=== PATIENT | female | born 1985 | race Caucasian/White ===

== ENCOUNTER 2017-11-14 08:06 | Emergency (ER) | payer OTHER ==
[2017-11-14] MEDS ORDERED: NS 1,000 ML IV ONE (08:19)
--- NOTE | 2017-11-14 08:40 | EDPHY ---
HPI/HX/ROS/PE/MDM Narrative: CHIEF COMPLAINT: Vaginal bleeding, 11 weeks HPI: The patient is an 11-week 32 y/o female arriving with her complaining of progressive vaginal bleeding over the last day. She had a prior miscarriage around 12-13 weeks gestation in June of this year and required two D&Cs. She has had brown-colored spotting throughout this and has been followed closely by her OBGYN in [place]. Last week they detected a heart beat by doppler. She and her are visiting and have been in the [facility] for the last two days. Yesterday her spotting changed from a brown color to dark red blood and the volume of bleeding has slowly increased through this morning to where she is now seeing a lot of blood in the toilet. She now has associated mild lower abdominal cramping. She contacted her OBGYN's office this morning and was advised to come into the ED. She denies fever, dysuria, vomiting, or other complaints. REVIEW OF SYSTEMS: Aside from elements discussed in the HPI, a comprehensive 10-point review of systems was reviewed and is negative. PMH: A1 (miscarriage in June), O+ SOCIAL HISTORY: at bedside. Visiting from [place]. 2 y/o daughter. PHYSICAL EXAM: General:Patient is alert, in no acute distress. ENT:Eyes are normal to inspection. ENT inspection normal. Neck: Normal inspection. Full range of motion. Respiratory:No respiratory distress. Breath sounds normal bilaterally. Cardiovascular: Regular rate and rhythm. Strong peripheral pulses. Normal cap refill. Abdomen:The abdomen is nontender to palpation. There are no peritoneal signs. Back: Normal to inspection. No tenderness to palpation. Pelvic: Declines exam Skin: Normal color. No rash. Warm and dry. Extremities: Normal appearance. Full range of motion. Neuro: Oriented x3. Normal motor function. Normal sensory function. ED Course: This is a healthy 32 y/o female who is 11 weeks and presents with a 24-hour history of progressive dark red vaginal bleeding now associated with mild lower abdominal cramping. Abdomen is benign on exam. Presentation suspicious for miscarriage. Plan for IV, labs, UA, obstetrics US. 1L IV NS ordered. US shows healthy 11-week fetus with small subchorionic hemorrhage. Labs unremarkable. 0940: Consulted with Dr. Jose, OBGYN. Reassessed patient and discussed findings. Recommended pelvic rest, avoidance of heavy exertion, and follow up with her OBGYN upon her return home. Strict return precautions discussed. She is comfortable with plan for discharge. MDM: Patient presents with vaginal bleeding in first trimester of . This is likely secondary to subchorionic hemorrhage, but patient advised this could be early miscarriage. No sign of preeclampsia, infection, appendicitis, IUFD. - Data Points Imaging Results: Imaging Impressions Obstetrics Ultrasound 11/14/17 08:43 Impression: 1. Small subchorionic hemorrhage near the internal os. 2. Low-lying placenta with the lower edge at the level of the internal os. Follow-up is recommended to assess for superior migration as the uterus enlarges. Results called and discussed with Angel Lloyd MD, at 11/14/2017 9:25 Imaging: Discussed imaging studies w/ assembler semiconductor Radiologist, I viewed and interpreted images myself Laboratory Results: Laboratory Results 11/14/17 08:40 11/14/17 08:40 11/14/17 11/14/17 11/14/17 08:40 08:40 08:40 WBC 6.63 10^3/uL 10^3/uL (3.80-9.50) RBC 5.02 10^6/uL 10^6/uL (4.18-5.33) Hgb 13.2 g/dL g/dL (12.6-16.3) Hct 39.4 % % (38.0-47.0) MCV 78.5 fL L fL (81.5-99.8) MCH 26.3 pg L pg (27.9-34.1) MCHC 33.5 g/dL g/dL (32.4-36.7) RDW 14.6 % % (11.5-15.2) Plt Count 247 10^3/uL 10^3/uL (150-400) MPV 10.4 fL fL (8.7-11.7) Neut % (Auto) 62.3 % % (39.3-74.2) Lymph % (Auto) 29.3 % % (15.0-45.0) [place] % (Auto) 5.9 % % (4.5-13.0) Eos % (Auto) 1.4 % % (0.6-7.6) Baso % (Auto) 0.8 % % (0.3-1.7) Nucleat RBC Rel Count 0.0 % % (0.0-0.2) Absolute Neuts (auto) 4.14 10^3/uL 10^3/uL (1.70-6.50) Absolute Lymphs (auto) 1.94 10^3/uL 10^3/uL (1.00-3.00) Absolute Monos (auto) 0.39 10^3/uL 10^3/uL (0.30-0.80) Absolute Eos (auto) 0.09 10^3/uL 10^3/uL (0.03-0.40) Absolute Basos (auto) 0.05 10^3/uL 10^3/uL (0.02-0.10) Absolute Nucleated RBC 0.00 10^3/uL 10^3/uL (0-0.01) Immature Gran % 0.3 % % (0.0-1.1) Immature Gran # 0.02 10^3/uL 10^3/uL (0.00-0.10) Sodium 138 mEq/L mEq/L (135-145) Potassium 3.9 mEq/L mEq/L (3.3-5.0) Chloride 107 mEq/L mEq/L (97-110) Carbon Dioxide 23 mEq/l mEq/l (22-31) Anion Gap 8 mEq/L mEq/L (8-16) BUN 7 mg/dL mg/dL (7-23) Creatinine 0.5 mg/dL L mg/dL (0.6-1.0) Estimated GFR > 60 Glucose 83 mg/dL mg/dL (70-100) Calcium 9.3 mg/dL mg/dL (8.5-10.4) Beta HCG, Quant 726938.00 mIU/mL H mIU/mL (0.00-4.83) Patient ABO/Rh O POSITIVE Medications Given: Discontinued Medications Sodium Chloride (Ns) 1,000 mls @ 0 mls/hr IV ONCE ONE; Wide Open PRN Reason: Protocol Stop: 11/14/17 08:20 Last Admin: 11/14/17 08:45 Dose: 1,000 mls General Time Seen by Provider: 11/14/17 08:34 Initial Vital Signs: Initial Vital Signs Temperature (C) 36.3 C 11/14/17 08:10 Heart Rate 92 11/14/17 08:10 Respiratory Rate 16 11/14/17 08:10 Blood Pressure 141/87 H 11/14/17 08:10 O2 Sat (%) 99 11/14/17 08:10 O2 Delivery Mode Room Air Allergies/Adverse Reactions: No Known Allergies Allergy (Unverified 11/14/17 08:09) Home Medications: Medication Instructions Recorded 11/14/17 Departure - Departure Disposition: Home, Routine, Self-Care Clinical Impression: Subchorionic hemorrhage in first trimester, Vaginal bleeding during Condition: Good Instructions: First Trimester Vaginal Bleed (ED), Subchorionic Hemorrhage (ED) Additional Instructions: Follow up with your OBGYN upon your return home. Pelvic rest, no intercourse until cleared by OBGYN. Avoid heavy exertion. Return to the nearest ED for severe bleeding, lightheadedness, fainting, severe abdominal pain, or other worsening of condition. Referrals: Brittni Jose MD [Medical Doctor] - As per Instructions Report Scribed for: Angel Lloyd Report Scribed by: Jennifer Solorio Date of Report: 11/14/17 Time of Report: 08:42 Physician Review and Approval Statement: Portions of this note were transcribed by an ED scribe. I personally performed the history, physical exam, and medical decision making; and confirm the accuracy of the information in the transcribed note.
[2017-11-14 09:03] LABS: PLATELET COUNT 247 10^3/uL (150-400)
[2017-11-14 10:03] VITALS: BP 120/75
== END 2017-11-14 10:01 | disposition home or self-care (01) ==
DX: O36.8910 Maternal care for other specified fetal problems, first trimester, not applicable or unspecified (principal); E86.9 Volume depletion, unspecified; Z3A.11 11 weeks gestation of pregnancy